=== PATIENT | female | born 1970 | race Caucasian/White ===

== ENCOUNTER 2018-06-26 15:12 | Outpatient (REF) | payer BC, SELFPAY ==
--- NOTE | 2018-06-26 08:45 | PAPFT_PTH ---
PATIENT: KRISTIE HERR LOC: [facility] U#:[id number] AGE/SX: 47/F ROOM: RE06/26/[address]: Kristie Varela : 1970 BED: DIS: 06/26/2018 SPEC #: [id number] RECD: 06/29/18 13:18 STATUS: HUNTER REQ #: [id number] YSABEL: 06/26/18 08:[address]: Kristie Varela DEPT: [facility] Cytology RECD BY: Luisa Orr Tissues: 1 - CX/ENDOCX FOR PAP SMEARS Procedures: PAP THIN PREP/[facility] Screening HPV DNA PROBE Comments: [id number]
[2018-06-26 19:44] LABS: HCT 41.7 % (36.0-46.0); HGB 13.9 g/dL (12.0-15.5); Mean Corp. HGB Concentration 33.3 g/dL (32.0-36.0); Mean Corpuscular Hemoglobin 32.7 pg (27.0-33.0); Mean Corpuscular Volume 98.1 fL (80-95); Mean Platelet Volume 10.9 fL (8.0-11.0); Platelet Count 252 x1000/uL (130-400); RBC 4.25 m/cumm (4.00-5.20); RBC Distribution Width 12.6 % (11.7-14.6); White Blood Cell Count 5.34 k/cumm (4.4-10.8)
[2018-06-26 20:03] LABS: ALT 18 U/L (12-78); AST 24 U/L (15-37); Albumin 3.9 g/dL (3.4-5.0); Alkaline Phosphatase 55 U/L (46-116); Anion Gap 6.7 mmol/L (3-11); BUN 13 mg/dL (7-18); Bilirubin, Total 0.5 mg/dL (0.2-1.0); CO2 28.3 mmol/L (21.0-32.0); CREATININE 0.84 mg/dL (0.55-1.02); Calcium 8.7 mg/dL (8.5-10.1); Chloride 105 mmol/L (98-107); Cholesterol 273 mg/dL (50-200); Glucose 81 mg/dL (70-100); HDL Cholesterol 77 mg/dL (40-60); LDL CHOLESTEROL 178 mg/dL (<100); Potassium 4.1 mmol/L (3.5-5.1); Sodium 140 mmol/L (136-145); TSH (W/Ref FT4) 1.42 uIU/mL (0.358-3.74); Triglyceride 104 mg/dL (30-150)
== END 2018-06-26 15:32 ==
LOC: NCHCN 15:12
PROVIDERS: PCP Family Medicine; Visit Provider Family Medicine
DX: Z00.00 Encounter for general adult medical examination without abnormal findings (principal); Z13.29 Encounter for screening for other suspected endocrine disorder; Z13.0 Encounter for screening for diseases of the blood and blood-forming organs and certain disorders involving the immune mechanism; Z13.228 Encounter for screening for other metabolic disorders; Z13.220 Encounter for screening for lipoid disorders; Z12.4 Encounter for screening for malignant neoplasm of cervix; Z11.51 Encounter for screening for human papillomavirus (HPV)
CPT/HCPCS: 80053; 80061; 83721; 85027; 88142; 84443; 87624